=== PATIENT | female | born 1965 | race Caucasian/White ===

== ENCOUNTER 2023-02-09 15:58 | Outpatient (AMB) | payer OTHER, SELFPAY ==
--- NOTE | 2023-02-09 16:26 | MHC.OFFWIV ---
Intake Vital Signs 02/09/23 16:28 Height 5 ft 2 in BP 128/80 Blood Pressure Location Rt brachial Position Sitting Pulse 79 Pulse Source Pulse Oximeter Temp 98.4 F Temp Source Oral Pulse Oximetry (%) 97 Intake Visit Reasons: EP LT side abdominal pain (lobby) Intake Note: pt is here for c/o left abd pain, with vomiting Patient Tobacco Use Status: Never used Tobacco Allergies codeine [CODEINE] Adverse Reaction (Mild, Verified 02/13/23 14:23) VOMITING Medication List - Last Reconciled 02/13/23 by Lorenzo Cedeno MD atorvastatin 40 mg PO DAILY blood sugar diagnostic ([employer] Ultra Test strips) As directed ciprofloxacin HCl 500 mg PO BID lisinopril 2.5 mg PO DAILY metformin ER 1,000 mg PO BID Do you need a note to return to daycare/school/sports/work: No HPI EP LT side abdominal pain (lobby) HPI Details 57-year-old female presents to the office for a sick visit. Patient is reporting pain in the left lower quadrant for the past 2 or 3 days. Nausea present without any vomiting. No diarrhea. PFSH Social History Patient Tobacco Use Status: Never used Tobacco Physical Exam Vital Signs: Last Vital Signs Temp 98.4 F 02/09/23 16:28 Pulse 79 02/09/23 16:28 BP 128/80 02/09/23 16:28 Pulse Ox 97 02/09/23 16:28 Const General: cooperative and healthy appearing Nutritional Appearance: well nourished Orientation/consciousness: patient oriented x3 Limitations: no limitations HEENT Head: Yes normal to inspection Eyes General: appearance normal, both eyes and all related structures Neck Neck: Yes normal visual inspection Chest Chest palpation & inspection: normal palpation of entire chest wall Resp Effort & Inspection: normal respiratory effort GI Other: Abdomen: Bowel sounds are sluggish. Discomfort and tenderness in the left lower quadrant. No rebound tenderness. Neuro General: patient oriented x3 Assessment & Plan Assessment & Plan (1) Abdominal pain: Comment: Given exam findings today I have advised her that she needs additional workup to include a CT scan of her abdomen to rule out further pathology. The quickest way to do this would be to go to the emergency room however she does not wish to do this. She is active with her primary care and will follow-up with them today to request a CT scan and/or schedule a visit if that is required. She should continue to take her antibiotics as prescribed and continue a bland diet as tolerated. If at any time her symptoms are to worsen she should immediately seek care in the emergency room. Code(s): R10.9 - Unspecified abdominal pain Orders: Orders Basic Metabolic Panel 02/10/23 R10.9 - Unspecified abdominal pain Liver Panel 02/10/23 R10.9 - Unspecified abdominal pain Complete Blood Count no Diff 02/10/23 R10.9 - Unspecified abdominal pain Erythrocyte Sedimentation Rate 02/10/23 R10.9 - Unspecified abdominal pain Medications: New ciprofloxacin HCl 500 mg PO BID 14 tabs 0RF Coding Level of Care Code Est Pt Level 4 (39312) Diagnoses Abdominal pain R10.9
[2023-02-09 16:28] VITALS: BP 128/80; PULSE 79; TEMP 36.9; O2SAT 97
== END 2023-02-09 17:05 | disposition home or self-care (01) ==
PROVIDERS: PCP Internal Medicine; Visit Provider Internal Medicine
DX: R10.9 Unspecified abdominal pain (principal)
CPT/HCPCS: 99214

== ENCOUNTER 2023-02-10 09:01 | Outpatient (REF) | payer OTHER, SELFPAY ==
[2023-02-10 11:52] LABS: Hematocrit 40.6 % (37.0-47.0); Hemoglobin 13.4 g/dl (12.0-16.0); Mean Corpuscular Hemoglobin 29.4 pg (27.0-33.0); Mean Platelet Volume 11.3 fL (9.4-12.3); Platelet Count 219 X10*3/uL (160-400); Red Blood Count 4.56 X10*6/uL (4.20-5.50); Red Cell Distribution Width 11.7 % (11.0-16.0); White Blood Count 7.1 X10*3/uL (4.8-10.8)
[2023-02-10 12:35] LABS: Alanine Aminotransferase 21 U/L (0-31); Albumin Level 4.2 g/dL (3.5-5.0); Alkaline Phosphatase 99 U/L (39-117); Anion Gap 11 (12-20); Aspartate Amino Transferase 21 U/L (5-31); Bilirubin Direct 0.5 mg/dL (0.0-0.5); Bilirubin Total 1.3 mg/dL (0.0-1.0); Blood Urea Nitrogen 12 mg/dL (9-16); Calcium 10.1 mg/dL (8.4-10.2); Carbon Dioxide 28 mmol/L (22-29); Chloride 107 mmol/L (96-108); Erythrocyte Sedimentation Rate 17 MM/HR (0-20); Estimated Glomerular Filt Rate > 60; Glucose Random 136 mg/dL (60-115); Potassium 3.6 mmol/L (3.3-5.1); Sodium 142 mmol/L (135-145); Total Protein 7.1 g/dL (6.5-8.0)
== END 2023-02-10 09:02 | disposition home or self-care (01) ==
LOC: HO.HMGCLDS 09:01
PROVIDERS: PCP Internal Medicine; Visit Provider Internal Medicine
DX: R10.9 Unspecified abdominal pain (principal)
CPT/HCPCS: 36415; 80048; 80076; 85027; 85652

== ENCOUNTER 2023-02-11 08:00 | Outpatient (AMB) | payer OTHER, SELFPAY ==
--- OUTSIDE RECORDS SUMMARY | 2023-02-11 08:02 | XMS_ITS | Continuity of Care Document ---
Author Name Unknown Organization [facility] [place] Address [address] [place] [address]- Care Team Providers Care Charging Plug Placer Name Role Phone Chiqui Lew MD, Laura Snow Primary Care Physicia n Encounter 08/19/22 - 08/26/22 [facility] [place] [address], [address] [place] [address]- Attending Physician: Jeff Sarmiento MD Admitting Physician: Jeff Sarmiento MD Referring Physician: Jeff Sarmiento MD Allergies, Adverse Reactions, Alerts Substance Reaction Severity Status codeine Active Immunizations Given and Recorded Vaccine Date Status Refusal Reason SARS-CoV-2 (COVID-19) mRNA-1273 vaccine 10/20/20 G iven SARS-CoV-2 (COVID-19) mRNA-1273 vaccine 09/22/20 G iven Medications Percocet-5/325 325 mg-5 mg oral tablet 1 tablet, By Mouth, Every 4 hours, PRN for pain, # 15 tablet, 0 Refills, Maintenance, Tablet Start Date: 11/02/12 Status: Ordered Simvastatin By Mouth, Daily at bedtime, 0 Refills, Maintenance Start Date: 11/02/12 Status: Ordered Zofran ODT 4 mg oral tablet, disintegrating 1 tablet = 4 mg, By Mouth, 3 times a day, # 10 tablet, 0 Refills, Maintenance, DIS Tablet Start Date: 11/02/12 Status: Ordered Results Radiology Reports * Exam Date Time Procedure Performing Provider Status 08/19/22 10:42 AM MM Digital Mammo Screening Roscoe Multani; Auth (Verified) Notes: (MM Digital Mammo Screening) Reason For Exam: Z12.31 SCREENING RESULT: MM Digital Mammo Screening PROCEDURE: MM Digital Mammo Screening INDICATION: Screening for breast cancer. No known palpable abnormalities. COMPARISON: Multiple priors, the most recent 08/15/2021 and 08/21/2021 TECHNIQUE: Full-field digital CC and MLO 3D tomosynthesis images of both breasts were acquired. Computer-aided detection (CAD) was utilized in the interpretation of this study. DENSITY: The breast tissue contains scattered areas of fibroglandular density. FINDINGS: No suspicious masses, suspicious microcalcifications, or areas of architectural distortion are seen in either breast to suggest malignancy. IMPRESSION: No mammographic evidence of malignancy. RECOMMENDATION: Routine mammographic screening BI-RADS: 1 (Negative) Lay letter mailed to patient WSN: [id number] Ordering Physician: Jeff Sarmiento Dictated By: Christian Mills MD Dictated Date/Time: 08/19/22 4:57 pm Reviewed By: Christian Mills MD Signed By: Christian Mills MD Signed Date/Time: 08/19/22 4:57 pm Transcribed By: LAKISHA Ivory Carver Date/Time: 08/19/22 4:51 pm Birads: MG Breast Screening * [facility] , CIS S: TRANSCRIBE Christian Mills MD: VERIFY Event Display: Result: Authored Date: [id number] PROCEDURE: MM Digital Mammo Screening INDICATION: Screening for breast cancer. No known palpable abnormalities. COMPARISON: Multiple priors, the most recent 08/15/2021 and 08/21/2021 TECHNIQUE: Full-field digital CC and MLO 3D tomosynthesis images of both breasts were acquired. Computer-aided detection (CAD) was utilized in the interpretation of this study. DENSITY: The breast tissue contains scattered areas of fibroglandular density. FINDINGS: No suspicious masses, suspicious microcalcifications, or areas of architectural distortion are seen in either breast to suggest malignancy. IMPRESSION: No mammographic evidence of malignancy. RECOMMENDATION: Routine mammographic screening BI-RADS: 1 (Negative) Lay letter mailed to patient WSN: [id number] Ordering Physician: Jeff Sarmiento Dictated By: Christian Mills MD Dictated Date/Time: 08/19/22 4:57 pm Reviewed By: Christian Mills MD Signed By: Christian Mills MD Signed Date/Time: 08/19/22 4:57 pm Transcribed By: CSB Ivory Carver Date/Time: 08/19/22 4:51 pm Birads: Patient Care team information Care Team Personnel Name: Chiqui Lew MD, Laura Snow Position: Reference Physician Member Role: PCP Address: Address: [address] [place] [address] [place] [address]- Care Team Related Persons Name: MARIA ESTHER MAYORGA Address: home [address] [place] [address]
--- OUTSIDE RECORDS SUMMARY | 2023-02-11 08:02 | XMS_ITS | Continuity of Care Document ---
Author Name Unknown Organization [facility] [place] Address [address] [place] [address]- Care Team Providers Care Computer Teacher Name Role Phone Darren Alicia Myrna Primary Care Filipe khan Encounter 07/15/19 - 07/22/19 [facility] [address], [facility] [address] [place] [address]- [phone] Attending Physician: Jeff Sarmiento MD Admitting Physician: Jeff Sarmiento MD Referring Physician: Jeff Sarmiento MD Allergies, Adverse Reactions, Alerts Substance Reaction Severity Status codeine Active Medications Percocet-5/325 325 mg-5 mg oral tablet [...]
--- OUTSIDE RECORDS SUMMARY | 2023-02-11 08:02 | XMS_ITS | Continuity of Care Document ---
Author Name Unknown Organization [facility] [place] Address [address] [facility] [place] [address]- Care Team Providers Care Rayon Winder Name Role Phone Darren Alicia Myrna Primary Care Filipe hkan Encounter 08/15/21 - 08/22/21 [facility] [address], [address] [place] [address]- Attending Physician: Jeff Sarmiento MD Admitting Physician: [...]
--- OUTSIDE RECORDS SUMMARY | 2023-02-11 08:02 | XMS_ITS | Continuity of Care Document ---
Author Name Unknown Organization [facility] [place] Address [address] [facility] [place] [address]- Care Team Providers Care Disability Coordinator Name Role Phone Darren robsonroyce Myrna Primary Care Filipe khan Encounter 07/25/20 - 08/01/20 [facility] [address], [address] [place], [place] [address] Attending Physician: Jeff Sarmiento MD Admitting Physician: [...]
--- NOTE | 2023-02-11 08:09 | AM.OFFWIN_ITS ---
Intake Vital Signs 02/11/23 08:13 BP 112/70 Blood Pressure Location Rt brachial Position Sitting Pulse 84 Pulse Source Pulse Oximeter Temp 97.5 F Temp Source Temporal Artery Scan Pulse Oximetry (%) 98 Oxygen Delivery Method Room Air Intake Visit Reasons: EST/bladder infection Intake Note: Patient here because she was here on thursday with vomiting and severe abdominal pain and was given a antibiotic and now she is experiencing abdomen pain and having constant pressure on bladder but only having a few drops of urine Patient Tobacco Use Status: Never used Tobacco Allergies codeine [CODEINE] Adverse Reaction (Mild, Verified 02/11/23 08:52) VOMITING Medication List - Last Reconciled 02/11/23 by Coral Lynn, ANNIKA-MAYUR atorvastatin 40 mg PO DAILY blood sugar diagnostic ([employer] Ultra Test strips) As directed ciprofloxacin HCl 500 mg PO BID lisinopril 2.5 mg PO DAILY metformin ER 1,000 mg PO BID Do you need a note to return to daycare/school/sports/work: No HPI HPI Comments History of Present Illness Details 57-year-old female here today with continued complaints of abdominal pain. Reports he was here on Thursday for complaints of left-sided abdominal pain associated with nausea vomiting and diarrhea. She was given a prescription for Cipro and has taken a total of 3 doses. Since this time her diarrhea has improved slightly she has no more vomiting. She continues with abdominal cramping which seems to be relieved after moving her bowels. She has been eating a bland diet. Last night she began to feel lower abdominal pressure and pain around the area of her bladder. She describes it as feeling like she has a urinary tract infection. States that when she goes to the bathroom to try to avoid she only gets a few drops. She reports abdominal surgery history of cholecystectomy and x2. Reports that her colonoscopy is up-to-date she has had to and is due for repeat next year. She denies fever chills back pain alcohol use. Cbc and CMP performed on Thursday and reviewed. No clinical significance found. Urine done today see results below. PFSH Social History Patient Tobacco Use Status: Never used Tobacco Review of Systems Const All systems reviewed & are unremarkable except as noted in HPI and below Physical Exam Vital Signs: Last Vital Signs Temp 97.5 F 02/11/23 08:13 Pulse 84 02/11/23 08:13 BP 112/70 02/11/23 08:13 Pulse Ox 98 02/11/23 08:13 Oxygen Delivery Method Room Air 02/11/23 08:13 Const Other: Awake alert oriented nontoxic Scleras clear bilat Mucous membranes moist rrr Lung sounds clear bilat Hypoactive bowel sounds, tenderness with palpation left upper quad and rebound tenderness in left lower quad, abdomen is soft. No epigastric tenderness. No CVAT bilat Skin pink warm and dry Results AMB Urinalysis, Automated UA Leukoctes 0 Deb/uL Last Edit by Ameena Leger CCM on 02/11/23 08:24 UA Nitrite Negative Last Edit by Ameena Leger [facility] on 02/11/23 08:24 UA Urobilinogen 0 mg/dL Last Edit by Ameena Leger [facility] on 02/11/23 08: 24 UA Protein 15 mg/dL Last Edit by Ameena Leger [facility] on 02/11/23 08:24 UA pH 5.5 Last Edit by Ameena Leger [facility] on 02/11/23 08:24 UA Blood 25 Harrison/uL Last Edit by Ameena Leger [facility] on 02/11/23 08:24 UA Specific Tyro 1.030 Last Edit by Ameena Leger [facility] on 02/11/23 08:24 UA Ketone Negative Last Edit by Ameena Leger [facility] on 02/11/23 08:24 UA Bilirubin 0 mg/dL Last Edit by Ameena Leger [facility] on 02/11/23 08:24 UA Glucose 0 mg/dL Last Edit by Ameena Leger [facility] on 02/11/23 08:24 Results Reviewed Results Reviewed: Laboratory Last Values Urine pH (Auto) 5.5 02/11/23 08:22 Specific Tyro (Auto) 1.030 02/11/23 08:22 Urine Protein (Auto) 15 mg/dL 02/11/23 08:22 Glucose (UA)(Auto) 0 mg/dL 02/11/23 08:22 Urine Ketones (Auto) Negative 02/11/23 08:22 Urine Blood (Auto) 25 Harrison/uL 02/11/23 08:22 Urine Nitrite (Auto) Negative 02/11/23 08:22 Urine Bilirubin (Auto) 0 mg/dL 02/11/23 08:22 Urine Urobilinogen (Auto) 0 mg/dL 02/11/23 08:22 Leukocyte Esterase (Auto) 0 Deb/uL 02/11/23 08:22 Assessment & Plan Assessment & Plan (1) Abdominal pain: Comment: Given exam findings today I have advised her that she needs additional workup to include a CT scan of her abdomen to rule out further pathology. The quickest way to do this would be to go to the emergency room however she does not wish to do this. She is active with her primary care and will follow-up with them today to request a CT scan and/or schedule a visit if that is required. She should continue to take her antibiotics as prescribed and continue a bland diet as tolerated. If at any time her symptoms are to worsen she should immediately seek care in the emergency room. Code(s): R10.9 - Unspecified abdominal pain Orders: Orders AMB Urinalysis Automated Today Z13.9 - Encounter for screening, unspecified Coding Level of Care Code Est Pt Level 4 (98890) Diagnoses Abdominal pain R10.9
[2023-02-11 08:13] VITALS: BP 112/70; PULSE 84; TEMP 36.4; O2SAT 98
== END 2023-02-11 10:06 | disposition home or self-care (01) ==
PROVIDERS: PCP Internal Medicine; Visit Provider Nurse Practitioner Family
DX: R10.9 Unspecified abdominal pain (principal); Z13.9 Encounter for screening, unspecified
CPT/HCPCS: 81003; 99214

== ENCOUNTER 2023-03-20 09:21 | Outpatient (REF) | payer OTHER, SELFPAY | END 2023-03-20 09:22 | disposition home or self-care (01) | LOC: HO.SH 09:21 | PROVIDERS: Visit Provider Internal Medicine | DX: Z01.118 Encounter for examination of ears and hearing with other abnormal findings (principal); H90.3 Sensorineural hearing loss, bilateral; H93.12 Tinnitus, left ear | CPT/HCPCS: 92557; 92567 ==